=== PATIENT | male | born 1995 | race Caucasian/White ===

== ENCOUNTER 2016-10-18 20:33 | Emergency (ER) | payer OTHER ==
[~2016-10-18] VITALS: Ht 180.3 cm; Wt 80.6 kg
[~2016-10-18 20:33] MED LIST: CETI10TA84 PO
[2016-10-18 20:45] VITALS: TEMP 37.5; Ht 180.3 cm; Wt 80.6 kg
[2016-10-18] MEDS ORDERED: XYLOCAINE 1%/SOD BICARB 20 ML VIAL INFIL STA (21:09)
[2016-10-18] MEDS ORDERED: BUPIVACAINE 0.5 % 5 MG/1 ML MPF 30ML VIAL INFIL STA (21:09)
[2016-10-18] MEDS ORDERED: RBTUDL5 (21:14)
[2016-10-18] MEDS ORDERED: DEXT30TA7 PO (21:14)
--- NOTE | 2016-10-18 21:28 | DIAGNOSTIC IMAGING REPORT ---
RIGHT INDEX FINGER 3 VIEWS HISTORY: Right index finger deformity Right COMPARISON: None. FINDINGS: Dorsal dislocation at the PIP joint of the right index finger. Soft tissue swelling at the PIP joint. No fractures identified. Mild overlap of the dislocated PIP joint. No radiopaque foreign bodies. IMPRESSION: Dorsal dislocation at the PIP joint of the right index finger. Electronically signed by: Efrain Barrera M.D. 10/18/2016 9:27 PM Dictated Date/Time: 10/18/2016 9:26 PM
--- NOTE | 2016-10-18 21:58 | EMERGENCY ROOM VISIT NOTE ---
History First contact with patient: 20:57 Chief Complaint: FINGER PAIN Stated Complaint: BROKEN R INDEX FINGER History of Present Illness The patient is a 21 year old male who presents to the Emergency Room via private vehicle accompanied by friends with complaints of "broken right index finger". Patient states that just prior to arrival, around 8:15 PM he was playing intramural basketball at [employer], when he attempted to catch a ball that struck his right extended index finger. He notes that it is now broken. He rates the pain as an 8/10. Tetanus is up-to-date. He denies any pertinent past medical history. Review of Systems A complete 6-point Review of Systems was discussed with the patient, with pertinent positives and negatives listed in the History of Present Illness. All remaining Review of Systems questions can be considered negative unless otherwise specified. Past Medical/Surgical History No pertinent past medical history. Family History No pertinent family history. Social History Smoking Status: Never Smoker Social History: Patient is a [employer] student and participates in intramural basketball. Current/Historical Medications Scheduled PRN Cetirizine (Zyrtec), 10 MG PO DAILY PRN for ALLERGIC REACTION Dextromethorphan-Guaifenesin (Mucinex Dm), 1 TAB PO Q12 PRN for PRN Miscellaneous Medications Guaifenesin (Robitussin), Unknown Dose Allergies Coded Allergies: No Known Allergies (Unverified , 10/18/16) Physical Exam Vital Signs Date Time Temp Pulse Resp B/P Pulse Ox O2 Delivery O2 Flow Rate FiO2 10/18/16 20:45 37.5 80 18 136/70 95 Room Air Physical Exam VITAL SIGNS - Vital signs and nursing notes were reviewed. Vital signs stable. GENERAL -21-year-old male appearing his stated age who is in no acute distress. Communicates well with provider and answers questions appropriately. SKIN - Without rashes. No breaks in the integument. HEAD - NC/AT. EXTREMITIES - there is visible deformity of the right index finger at the level of the PIP. Skin is intact. He is vascularly intact. No range of motion of this joint secondary to potential dislocation/fracture. Patient is able to discriminate between sharp and dull sensation. Medical Decision & Procedures ER Provider Diagnostic Interpretation: RIGHT INDEX FINGER 3 VIEWS HISTORY: Right index finger deformity Right COMPARISON: None. FINDINGS: Dorsal dislocation at the PIP joint of the right index finger. Soft tissue swelling at the PIP joint. No fractures identified. Mild overlap of the dislocated PIP joint. No radiopaque foreign bodies. IMPRESSION: Dorsal dislocation at the PIP joint of the right index finger. Electronically signed by: Efrain Barrera M.D. 10/18/2016 9:27 PM Dictated Date/Time: 10/18/2016 9:26 PM RIGHT INDEX FINGER 3 VIEWS HISTORY: Right index finger dislocation, relocated Right COMPARISON: None. FINDINGS: Patient is status post reduction of the dislocated PIP joint. Alignment is anatomic. Soft tissue swelling persists. No fractures. No radiopaque foreign bodies. IMPRESSION: Status post reduction of the dislocated PIP joint of the right index finger. The alignment is anatomic. No fractures Electronically signed by: Efrain Barrera M.D. 10/18/2016 10:15 PM Dictated Date/Time: 10/18/2016 10:14 PM Medications Administered Medications (Trade) Dose Ordered Sig/Jolene Route Start Time Stop Time Status Last Admin Dose Admin Lidocaine HCl (Buffered Lidocaine 1% Inj) 20 ml NOW STAT INFIL 10/18/16 21:09 10/18/16 21:11 DC 10/18/16 21:33 20 ML Bupivacaine HCl (Marcaine 0.5% MPF Inj) 30 ml NOW STAT INFIL 10/18/16 21:09 10/18/16 21:11 DC 10/18/16 21:33 30 ML Medical Decision Patient was seen and evaluated as above. After obtaining a thorough history and physical examination radiographs was obtained of the right index finger. Radiograph results as above. It is dislocated without evidence of fracture. Patient was offered relocation. He was also offered anesthetization. He opted to have the finger numbed. After patient consent, a timeout was performed and Betadine was utilized to cleanse the base of the dorsal right second digit. 6 mL's of 50/50 1% buffered lidocaine and 0.5% bupivacaine was used to digitally block the right index finger. Patient to order this well. This did not fully anesthetized the digit therefore more was placed in the finger. The total amount was 6 mL's. This was with good result. The finger was relocated on the second attempt without difficulty. Interval radiograph was obtained. No evidence of fracture, successful relocation. Patient's pain diminished. He was fitted with a splint, educated to follow-up with orthopedics and was discharged in good condition. He is to return here with any new/concerning symptoms. In the evaluation and treatment of this patient, the following differential diagnoses were considered: Finger Fracture, Finger Dislocation, Finger Sprain, Finger Contusion, Jersey Finger, or Mallet Finger. Impression Primary Impression: Dislocation of finger PIP joint Departure Information Dispostion Home / Self-Care Condition GOOD Referrals No Doctor, Assigned (PCP) Johan Juarez MD Patient Instructions My [facility] Additional Instructions You have been treated in the Emergency Department for a dislocated finger, that has now been relocated. For pain control, you can use the following [id number] medicines (if >12 yo): - Regular strength (325mg/tab) Tylenol (acetaminophen) 2 tabs every 4-6 hours as needed. Do not exceed 12 tablets in a 24 hour period. Avoid taking more than 4 grams (4000 mg) of Tylenol per day. This includes any other sources of acetaminophen you may take on a regular basis. - Regular strength (200 mg/tab) Advil (ibuprofen) 1-2 tabs every 4-6 hours as needed. Do not exceed a dose of 3200 mg per day. Ice can be applied to the area of pain for the first 3 days to help decrease pain and inflammation. You have been provided the number for an Orthopaedic Surgeon. You should call this number as soon as possible to establish a follow-up visit from today's Emergency Department visit. Keep the brace/splint in place until evaluated by Orthopedics. (Dr. Juarez) Return to the Emergency Department if your current symptoms worsen despite treatment course outlined above, or if you develop any of the following symptoms : intractable pain despite aforementioned treatment course or new onset of numbness or tingling of the fingers. Problem Qualifiers Primary Impression: Dislocation of finger PIP joint Encounter type: initial encounter Qualified Codes: S63.289A - Dislocation of proximal interphalangeal joint of unspecified finger, initial encounter
--- NOTE | 2016-10-18 22:16 | DIAGNOSTIC IMAGING REPORT ---
RIGHT INDEX FINGER 3 VIEWS HISTORY: Right index finger dislocation, relocated Right COMPARISON: None. FINDINGS: Patient is status post reduction of the dislocated PIP joint. Alignment is anatomic. Soft tissue swelling persists. No fractures. No radiopaque foreign bodies. IMPRESSION: Status post reduction of the dislocated PIP joint of the right index finger. The alignment is anatomic. No fractures Electronically signed by: Efrain Barrera M.D. 10/18/2016 10:15 PM Dictated Date/Time: 10/18/2016 10:14 PM
[2016-10-18 22:33] VITALS: BP 130/86; PULSE 70; O2SAT 97
== END 2016-10-18 22:33 | disposition home or self-care (01) ==
LOC: C.EDB 20:34 → C.EDD 22:33
DX: S63.289A Dislocation of proximal interphalangeal joint of unspecified finger, initial encounter (principal); W21.89XA Striking against or struck by other sports equipment, initial encounter; Y93.67 Activity, basketball; Y99.8 Other external cause status; Y92.214 College as the place of occurrence of the external cause